=== PATIENT | male | born 1955 | race Caucasian/White ===

== ENCOUNTER 2019-11-12 00:44 | Outpatient (CLI) | payer OTHER, SELFPAY ==
[2019-11-12 18:12] LABS: SARS-CoV-2 RNA PCR Negative
== END 2019-11-12 00:45 | disposition home or self-care (01) ==
LOC: ANHCOVIDDT 00:44
PROVIDERS: Visit Provider Internal Medicine Cardiovascular Disease
DX: Z20.828 Contact with and (suspected) exposure to other viral communicable diseases (principal); Z01.812 Encounter for preprocedural laboratory examination
CPT/HCPCS: 87635; C9803; U0003

== ENCOUNTER 2019-11-14 05:32 | Day surgery (SDC) | payer OTHER, SELFPAY ==
[2019-11-13 11:18] VITALS: BMI 50.7
[2019-11-14] VITALS (10 sets, daily range): BP systolic 162–177; BP diastolic 97–119; PULSE 72–84; RESP 14–18; TEMP 36.1–36.4; O2SAT 94–98; BMI 47.0
--- NOTE | 2019-11-14 07:10 | SUR.PREOP ---
ARRIVES TO [facility] FROM OP SURGERY REGISTRATION FOR SCHEDULED C W/ DR. SCHROEDER AT 0830. A&OX3, DENIES PAIN ON ARRIVAL. REPORTS SOME SOB W/ EXERTION. ORIENTED TO ROOM AND PROCEDURE. QUESTIONS ANSWERED. IV STARTED, LABS SENT, VS OBTAINED, CONSENT SIGNED, SKIN PREPPED. WILL MONITOR.
[2019-11-14 07:33] LABS: Basophils Percent Auto 0.5 % (0.2-1.2); Eosinophils Absolute Auto 0.2 K/mm3 (0-0.3); Eosinophils Percent Auto 3.1 % (0-4.4); Hematocrit 43.4 % (42.0-52.0); Hemoglobin 14.5 g/dL (14.0-18.0); Immature Granulocyte Absolute 0.03 K/mm3 (0.00-0.031); Immature Granulocyte Percent A 0.5 % (0-0.5); Lymphocytes Absolute Auto 1.73 K/mm3 (0.9-3.2); Lymphocytes Percent Auto 27.2 % (18.3-44.2); Mean Corpuscular HGB Conc 33.4 g/dl (32-36); Mean Corpuscular Hemoglobin 31.2 pg (26-34); Mean Corpuscular Volume 93.3 fl (80-100); Mean Platelet Volume 9.7 fl (7.4-10.4); Monocytes Absolute Auto 0.5 K/mm3 (0.1-0.6); Monocytes Percent Auto 7.4 % (2.6-8.5); Neutrophils Absolute Auto 3.9 K/mm3 (1.3-6.7); Neutrophils Percent Auto 61.3 % (45.5-73.1); Platelet Count Result 149 k/mm3 (150-375); Red Blood Count 4.65 M/mm3 (4.6-6.20); Red Cell Distribution Width 13.4 % (11.5-14.5); White Blood Count 6.4 K/mm3 (4.5-10.0)
[2019-11-14 08:02] LABS: Prothrombin Time 12.6 Seconds (11.1-14.7)
[2019-11-14 08:03] LABS: Blood Urea Nitrogen 13 mg/dL (9-20); Calcium 9.1 mg/dL (8.4-10.2); Carbon Dioxide 33 mmol/L (22-30); Chloride 101 mmol/L (98-107); Estimated CRCL calculation 144 ml/min; Estimated Glomerular Filt Rate > 60; Glucose 133 mg/dL (75-110); Sodium 138 mmol/L (137-145)
--- NOTE | 2019-11-14 08:18 | SUR.PREOP ---
DR. SCHROEDER TO BEDSIDE TO SEE PT.
--- NOTE | 2019-11-14 08:28 | WPDMODSED ---
Moderate Sedation Note-Pt Data Patient Data Allergies Allergy/AdvReac Type Severity Reaction Status Date / Time Penicillins Allergy Unknown Nausea and Verified 03/18/17 19:26 Vomiting shellfish derived Allergy Unknown Nausea and Verified 03/18/17 19:26 Vomiting Home Medications Medication Instructions Recorded Confirmed Type allopurinol 300 mg PO DAILY 11/13/19 11/14/19 History atorvastatin 80 mg PO HS 11/13/19 11/14/19 History carvedilol 12.5 mg PO BID 11/13/19 11/14/19 History duloxetine [Cymbalta] 60 mg PO DAILY 11/13/19 11/14/19 History gabapentin 800 mg PO TID 11/13/19 11/14/19 History hydrocodone-acetaminophen 1 tablet PO Q6H PRN 11/13/19 11/14/19 History lisinopril 20 mg PO DAILY 11/13/19 11/14/19 History nitroglycerin 0.4 mg SUBLINGUAL Q5M PRN 11/13/19 11/14/19 History oxybutynin chloride 5 mg PO BID 11/13/19 11/14/19 History tizanidine 8 mg PO TID PRN 11/13/19 11/14/19 History trazodone 150 mg PO HS 11/13/19 11/14/19 History diclofenac sodium 2 g TOPICAL QID 11/14/19 11/14/19 History naloxone 4 mg INTRANASAL Q2-3M PRN 11/14/19 11/14/19 History Current Medications: Active Medications Sodium Chloride (Normal Saline Iv) 500 mls @ 100 mls/hr IV CONT .Q5H FERNANDO Sedation/Anesthesia: No previous sedation/anesthesia problems (including family history). [facility] Past Medical History Medical History (Updated 11/14/19 @ 08:29 by David Wagoner MD) CAD (coronary artery disease) Hypertension Morbid obesity Social History Social History Gender identity (if verbalized by the patient): Male Mod Sed Physical Exam Physical Exam Pre Procedural Exam: Normal: Appearance, Eyes, Ears, Nose, Neck, Throat, Airway, Lungs, Heart Size, Heart Rate, Heart Rhythm, Neuro Exam, Abdomen, Liver, Kidneys, Spleen, Breasts, Genitalia, Extremities and Skin Hours since solid foods: 8 Hours since liquid intake: 8 Internal Medicine - PN: Obj Da Vital Signs Vital Signs: Vital Signs - 24 hr 11/14/19 07:15 Temperature 36.4 C L Pulse Rate 78 Respiratory Rate 16 Blood Pressure 170/104 H Pulse Oximetry 95 Meds/Results Medications: Active Medications Generic Name Dose Route Start Last Admin Trade Name Iesha PRN Reason Stop Dose Admin Sodium Chloride 500 mls @ 100 mls/hr 11/14/19 06:30 Normal Saline Iv IV CONT .Q5H FERNANDO Labs CBC & Chem 7: 11/14/19 07:23 11/14/19 07:44 Labs: Laboratory Results - last 24 hr 11/14/19 11/14/19 11/14/19 07:23 07:44 07:44 WBC 6.4 RBC 4.65 Hgb 14.5 Hct 43.4 MCV 93.3 MCH 31.2 MCHC 33.4 RDW 13.4 Plt Count 149 L MPV 9.7 Immature Gran % (Auto) 0.5 Neut % (Auto) 61.3 Lymph % (Auto) 27.2 [place] % (Auto) 7.4 Eos % (Auto) 3.1 Baso % (Auto) 0.5 Lymph # (Auto) 1.73 [place] # (Auto) 0.5 Eos # (Auto) 0.2 Baso # (Auto) 0.0 Abs Immat Gran (auto) 0.03 Absolute Neuts (auto) 3.9 Absolute Nucleated RBC 0.0 Nucleated RBC % 0.0 PT 12.6 INR 1.0 Sodium 138 Potassium 4.0 Chloride 101 Carbon Dioxide 33 H BUN 13 Creatinine 0.70 Estim Creat Clear Calc 144 Estimated GFR > 60 Glucose 133 H Calcium 9.1 ASA Classification/Sedation ASA Classification/Sedation ASA Class: I Emergent: No Risks: Risks, benefits and alternatives explained and patient/family accepted plan for sedation. Patient re-evaluated immediately prior to sedation.
--- NOTE | 2019-11-14 08:30 | WPDHPUPDATE1 ---
History and Physical Update Update Date/Time: 11/14/19 08:30 History and Physical has been reviewed, including an updated exam of the patient. There are NO changes in the patient's condition. Risks, benefits, and alternatives have been discussed and questions answered. Patient agrees to proceed with procedure.
--- NOTE | 2019-11-14 09:12 | WPDCARDPROC ---
Cardiac Cath Procedure Note Date of procedure:: 11/14/19 Performing physician:: David Wagoner MD Date of service: 11/14/2019 Indication:: Chest pain and dyspnea on exertion Brief clinical history:: this is a 64-year-old patient with past medical history of anterior STEMI 2018 with drug-eluting stent 3 mm stent proximal LAD, hypertension, hyperlipidemia morbid obesity for follow-up was complaining chest pain and dyspnea on exertion for the last 3-4 weeks. given his body habitus we decided to bring him directly for catheterization and bypass stress testing. Procedure Procedure performed:: 1-Moderate sedation that started at and ended at using 5 mg of Versed and 50mg fentanyl. The registered nurse Melia Prather 2-Selective left and right coronary angiogram. 3-Left heart catheterization with measurement of LVEDP and measurement of gradient across aortic valve. 4-Right common femoral arterial angiogram. 5-Deployment of 6 [place] Angio-Seal. Sedation/Medication given:: Moderate sedation. Access site:: Right common femoral artery. Estimated blood loss:: 10cc Procedure note:: After informed consent patient was brought in to laborer filter plant with the was draped and prepped in usual manner. Moderate sedation was given and the right groin was infiltrated using 1% lidocaine. Five Malaysian sheath was obtained using micropuncture needle and the modified Seldinger technique. Selective left coronary angiogram was done using JL4 catheter with the tip of the catheter placed in the left main coronary artery. the JL4 was inserted also in the left ventricle with measurement of the LVEDP measurement reviewed the aortic valve.Selective right coronary angiogram was done using JR4 catheter with the tip of the catheter placed to the right coronary artery. Right common femoral arterial angiogram was done. A 6 [place] Angio-Seal applied Findings:: 1- left coronary artery is a large artery that divides into large LAD, medium-sized circumflex artery. Left main is free of disease 2- left anterior descending artery is a large artery that runs and stops before the apex. Has patent stent proximally. the vessel distal to the stent relatively smaller in size. LAD gives rise to a large diagonal 1 branch that has minimal irregularities. 3- left circumflex artery is a Medium-sized artery. Right after takes from the left main it gives rise to medium-sized OM 1 branch with that is free of disease and the left circumflex artery itself is free of disease. 4- right coronary artery is Very large artery and dominant and has minimal irregularities. PDA and right posterolateral branches are very large in size. 5- LVEDP was 20 mm Hg and no gradient across aortic valve. 6- opening arterial pressure was 130/80 and closing pressure was 160/70. 7- right femoral artery angiogram shows no significant disease in the right common femoral artery. Conclusion:: 1- patent stent proximal LAD. 2- other minimal coronary irregularities. 3- shortness of breath on exertion most likely secondary to morbid obesity. Assessment and Plan Additional Plan continue aggressive risk factor modification for CAD.
--- NOTE | 2019-11-14 09:15 | SUR.PHASEII ---
BEGIN PHASE II RECOVERY. RETURNS TO [facility]/P [facility] W/ DR. SCHROEDER. 6FR. ANGIOSEAL CLOSURE DEVICE TO PUNCTURE SITE R.FA. SITE SOFT, NONTENDER. NO BLEEDING OR HEMATOMA NOTED. GUAZE AND TEGADERM DRESSING C/D/I TO SITE. R. PEDAL PULSE STRONG. IVF'S RUNNING ORDERED TO IV L. WRIST. DENIES PAIN OR SOB. REVIEWED BEDREST ACTIVITY RESTRICTIONS W/ PT. VOICES UNDERSTANDING. BP ELEVATED WAS PRE CATH. WILL CONTINUE TO MONITOR.
[2019-11-14] MEDS: carvediloL 12.5 MG TABLET PO (10:47)
--- NOTE | 2019-11-14 11:03 | SUR.PHASEII ---
1045 spoke with Vicky [employer]ING [employer] regarding pts elevated BP despite him taking his morning BP pills, Per Vicky coreg 12.5mg PO ordered.
--- NOTE | 2019-11-14 11:10 | SUR.PHASEII ---
HAS RECEIVED ONE TIME DOSE OF COREG 12.5MG PO. BEDREST X 2 HOURS COMPLETE. R. GROIN SITE REMAINS SOFT, NONTENDER, NO BLEEDING OR HEMATOMA. DRESSING TO SITE REMAINS C/D/I. R. PEDAL PULSE STRONG. DANGLED BEDSIDE, THEN UP TO RECLINER CHAIR AT BEDSIDE. STEADY. REPORTS NO PAIN, SOB, OR DIZZINESS. HAS VOIDED X 2 IN URINAL SINCE RETURN FROM [facility]. WILL CONTINUE TO MONITOR.
--- NOTE | 2019-11-14 12:00 | SUR.PHASEII ---
IZA WOLFF FIRER BOILER HERE. UPDATED ON BP TREND AND TREND POST DOSE OF COREG PO.
--- NOTE | 2019-11-14 12:25 | SUR.PHASEII ---
NO CHANGE IN R. GROIN CATH SITE. R. PEDAL PULSE STRONG. DRESSING FOR DISCHARGE HOME.
--- NOTE | 2019-11-14 12:40 | SUR.PHASEII ---
REVIEWED ALL DISCHARGE INSTRUCTIONS AND FOLLOW UP CARE W/ PT. VOICED UNDERSTANDING. ANGIOSEAL PAMPHLET, DISCHARGE INSTRUCTIONS, EXTRA BANDAIDS GIVEN.
--- NOTE | 2019-11-14 12:42 | SUR.PHASEII ---
DISCHARGED HOME, OUT VIA WC TO 'S WAITING CAR WITH ALL PERSONAL BELONGINGS AND DISCHARGE PACKET. VOICES NO C/O.
== END 2019-11-14 12:42 | disposition home or self-care (01) ==
PROVIDERS: Visit Provider Internal Medicine Cardiovascular Disease
PROC: 4A023N7 Measurement of Cardiac Sampling and Pressure, Left Heart, Percutaneous Approach (ICD-10-PCS; CPT 93452; principal; 2019-11-14 08:30)
DX: R07.9 Chest pain, unspecified (principal); R06.09 Other forms of dyspnea; I25.2 Old myocardial infarction; I10 Essential (primary) hypertension; E78.5 Hyperlipidemia, unspecified; Z95.5 Presence of coronary angioplasty implant and graft; E66.01 Morbid (severe) obesity due to excess calories; Z68.42 Body mass index [BMI] 45.0-49.9, adult
CPT/HCPCS: 36415; 80048; 85025; 85610; 93458; A9270; C1760; C1887; C1894; G0269; J1644; J2250; J3010; J7040